=== PATIENT | male | born 1950 | race American Indian/Alaskan Native ===

== ENCOUNTER 2019-09-21 15:44 | Emergency (ER) | payer MEDICARE, OTHER ==
--- NOTE | 2019-09-21 16:14 | Cat Scan Report ---
CT BRAIN: 09/21/2019 INDICATION / CLINICAL INFORMATION: Right-sided weakness. COMPARISON: CT brain 06/23/2010 FINDINGS: BRAIN/INTRACRANIAL STRUCTURES: Unenhanced CT images of the brain demonstrate no evidence of acute int racranial abnormality. Again seen is evidence of the prior left parietal craniotomy, with prominent underlying left parietal cortical and subcortical encephalomalacia. There may be a small 1.2 cm area of abnormal soft tissue along the margin of the craniotomy site, as seen on axial images 26-27 and coronal image 60. Have ally dence of small meningioma, although because of localized artifact related to the craniotomy site, thi s cannot be confirmed. Depending on details of the clinical circumstances, as well as further informa tion regarding the nature of the underlying lesion and surgery, further evaluation with unenhanced an d enhanced MRI may be useful. EXTRACRANIAL STRUCTURES: Unremarkable. IMPRESSION: 1. No evidence of acute abnormality. 2. Postoperative changes as described above. These findings were discussed with Dr. Butler in the emergency department at [address] scans at this location are performed using dose reduction to ALARA by means of automated expos ure control. Signer Name: Aleksander Theodore MD Signed: 09/21/2019 4:10 PM Workstation Name: [id number]
[2019-09-21 16:15] LABS: Basophils % (Auto) 0.5 % (0.0-1.8); Eosinophils # (Auto) 0.1 K/mm3 (0.0-0.4); Eosinophils % (Auto) 1.4 % (0.0-4.3); Hematocrit 43.8 % (35.5-45.6); Hemoglobin 14.7 gm/dl (11.8-15.2); Lymphocytes # (Auto) 1.7 K/mm3 (1.2-5.4); Lymphocytes % (Auto) 35.6 % (13.4-35.0); Mean Corpuscular HGB Conc 34 % (32-34); Mean Corpuscular Volume 90 fl (84-94); Monocytes # (Auto) 0.4 K/mm3 (0.0-0.8); Monocytes % (Auto) 7.7 % (0.0-7.3); Platelet Count 219 K/mm3 (140-440)
--- NOTE | 2019-09-21 16:27 | XRay Report ---
CHEST 1 VIEW INDICATION / CLINICAL INFORMATION: stroke. COMPARISON: None available. FINDINGS: SUPPORT DEVICES: None. HEART / MEDIASTINUM: No significant abnormality. LUNGS / PLEURA: No significant pulmonary or pleural abnormality. No pneumothorax. ADDITIONAL FINDINGS: No significant additional findings. IMPRESSION: No acute pulmonary or pleural abnormality Signer Name: Cameron Genao MD FACR Signed: 09/21/2019 4:23 PM Workstation Name: [id number]
[2019-09-21 16:28] LABS: INR 1.07 (0.87-1.13); Partial Thromboplastin Time 24.7 Sec. (24.2-36.6); Thrombin Time 16.5 Sec. (15.1-19.6)
[2019-09-21 16:31] LABS: Creatine Kinase MB 1.7 ng/mL (0.0-4.0)
[2019-09-21 16:33] LABS: Alanine Aminotransferase 14 units/L (7-56); Albumin 4.2 g/dL (3.9-5); BUN/Creatinine Ratio 19; Blood Urea Nitrogen 19 mg/dL (9-20); Calcium 9.4 mg/dL (8.4-10.2); Hemolysis Index 5
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
[2019-09-21 17:45] VITALS: BP 186/124
[2019-09-21] MEDS ORDERED: ASPIRIN 325 MG TAB PO ONE (17:45)
--- NOTE | 2019-09-21 17:55 | Cat Scan Report ---
NECK ANGIOGRAM 09/21/2019 HISTORY: Right-sided weakness FINDINGS: Contrast-enhanced CT angiographic images of the neck were obtained. In addition to the axia l images, sagittal and coronal reformatted images were obtained. In addition, 3 plane MIP reconstruct ions were produced. NASCET like criteria were used in this evaluation. At the right bifurcation, there is contrast opacification of the proximal aspect of the right interna l carotid artery, which appears to be occluded approximately 2.7 cm above the bifurcation. There is n o opacification of the upper cervical internal carotid artery on the right above this level. Descript ion of the intracranial distal right ICA is made on the head CT angiogram report. The left bifurcation is unremarkable. Vertebral artery contours are unremarkable. Visualized portions of the aortic arch are unremarkable. IMPRESSION: 1. Right ICA occlusion. All CT scans at this location are performed using dose reduction to ALARA by means of automated expos ure control. Signer Name: Aleksander Theodore MD Signed: 09/21/2019 5:51 PM Workstation Name: [id number]
--- NOTE | 2019-09-21 18:03 | Cat Scan Report ---
HEAD CT ANGIOGRAM 09/21/2019 HISTORY: Right-sided weakness FINDINGS: Contrast-enhanced CT angiographic images of the intracranial circulation were obtained. In addition to the axial images, sagittal and coronal reformatted images were obtained. In addition, 3 p brady MIP reconstructions were produced. There is some opacification present in the distal right internal carotid artery beginning in the lowe r no skull base, along the horizontal portion of the internal carotid artery. It is noted to be proxi desiree occluded on the neck CT angiogram. There is good visualization of the distal most aspect of the internal carotid arteries as well as their proximal anterior and middle cerebral artery branches. Intracranial arterial opacification is unremarkable, with no evidence of vessel occlusion. There is segment of the right middle cerebral artery distribution which is relatively avascular, 3.5 cm in the right parietal lobe. This would be suspicious for an area of acute vascular occlusion... Vertebral basilar system is unremarkable. Incidental note is made of enhancement of a 1.7 cm extra-axial soft tissue nodule along the upper mar gin of the left parietal craniotomy site. This was noted as a suspected mass on an earlier CT scan, a nd is likely to be a small meningioma. Correlation with patient's surgical history will be helpful fo r further evaluation of this finding IMPRESSION: No evidence of significant intracranial vascular abnormality. Possible avascular portion of right parietal lobe. See above discussion regarding small enhancing extra-axial nodule in left parietal region. All CT scans at this location are performed using dose reduction to ALARA by means of automated expos ure control. Signer Name: Aleksander Theodore MD Signed: 09/21/2019 5:58 PM Workstation Name: [id number]
[2019-09-21] MEDS ORDERED: ASPIRIN 300 MG RECT SUPP PR ONE (18:28)
== END 2019-09-21 18:50 | disposition other institution (70) ==
LOC: ED 15:44
DX: I63.9 Cerebral infarction, unspecified (principal); R47.81 Slurred speech; I10 Essential (primary) hypertension; Z98.890 Other specified postprocedural states; Z79.2 Long term (current) use of antibiotics; Z79.899 Other long term (current) drug therapy
CPT/HCPCS: 36415; 70450; 70496; 70498; 71045; 80053; 82550; 82553; 82962; 84484; 85025; 85610; 85670; 85730; 93005; 96374; 99291; Q9967; 80320; G0480

== ENCOUNTER 2021-03-28 22:18 | Observation (INO) | payer MEDICARE ==
--- NOTE | 2021-03-28 23:42 | XRay Report ---
CHEST 1 VIEW 03/28/2021 10:29 PM INDICATION / CLINICAL INFORMATION: Chest Pain. COMPARISON: 09/21/19. FINDINGS: SUPPORT DEVICES: There is a probable environmental monitoring technician overlying the left mid chest. HEART / MEDIASTINUM: The heart size and pulmonary vasculature are normal. There is mild aortic tortuo sity without aneurysm. LUNGS / PLEURA: There is mild right basilar subsegmental atelectasis. The lungs are otherwise clear. No pleural abnormality is seen. No pneumothorax. ADDITIONAL FINDINGS: No significant additional findings. IMPRESSION: Mild right basilar subsegmental atelectasis. Signer Name: Ty Tate MD Signed: 03/28/2021 11:38 PM Workstation Name: [id number]
[2021-03-28 23:50] LABS: Basophils % (Auto) 0.1 % (0.0-1.8); Eosinophils # (Auto) 0.1 K/mm3 (0.0-0.4); Eosinophils % (Auto) 1.9 % (0.0-4.3); Hematocrit 40.3 % (35.5-45.6); Hemoglobin 12.7 gm/dl (11.8-15.2); Lymphocytes # (Auto) 0.3 K/mm3 (1.2-5.4); Lymphocytes % (Auto) 6.9 % (13.4-35.0); Mean Corpuscular HGB Conc 32 % (32-34); Mean Corpuscular Volume 89 fl (84-94); Monocytes # (Auto) 0.1 K/mm3 (0.0-0.8); Monocytes % (Auto) 3.4 % (0.0-7.3); Platelet Count 225 K/mm3 (140-440); Red Blood Count 4.53 M/mm3 (3.65-5.03); Red Cell Distribution Width 14.6 % (13.2-15.2)
[2021-03-29] MEDS ORDERED: NITROGLYCERIN 0.4 MG TAB SUBL SL PRN ×2 (00:03→01:48)
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
[2021-03-29 00:16] LABS: Alanine Aminotransferase 11 units/L (7-56); Albumin 4.1 g/dL (3.9-5); BUN/Creatinine Ratio 21; Blood Urea Nitrogen 21 mg/dL (9-20); Calcium 9.3 mg/dL (8.4-10.2); Hemolysis Index 3
[2021-03-29] MEDS ORDERED: MORPHINE 2 MG/1 ML INJ IV PRN (01:48)
[2021-03-29] MEDS ORDERED: ACETAMINOPHEN 325 MG TAB PO PRN (01:48)
[2021-03-29] MEDS ORDERED: traMADol 50 MG TAB PO PRN (01:48)
--- NOTE | 2021-03-29 01:56 | History and Physical Report ---
History of Present Illness Date of examination: 03/29/21 Date of admission: 03/29/21 00:02 Chief complaint: Chest pain History of present illness: 70-year-old male with history of CVA, brain tumor status post craniotomy, coronary disease status post cardiac stent who presents with dental pain chest pain which is 8/10 left chest radiating to the left upper quadrant and epigastric region. Sudden onset of a thumping sensation with shortness of breath. One episode of vomiting. Cardiac stent placed at [facility] 1 year ago. He received aspirin per EMS. In the emergency room patient initial troponin is 0.010. Chest x-ray shows mild right basilar subsegmental atelectasis.'s were going to admit the patient to put the patient on chest pain pathway and consult ironworker Med rec is done Past History Past Medical History: CAD, other (Status post cardiac a stent. Brain tumor status post craniotomy) Medications and Allergies Allergies Allergy/AdvReac Type Severity Reaction Status Date / Time No Known Allergies Allergy Verified 03/28/21 22:31 Home Medications Medication Instructions Recorded Confirmed Last Taken Type Phenazopyridine [Pyridium] 200 mg PO TID #6 tab 11/25/15 Unknown Rx levoFLOXacin [Levaquin] 750 mg PO QDAY #10 tablet 11/25/15 Unknown Rx lisinopriL [Zestril TAB] 10 mg PO QDAY 11/25/15 11/25/15 Unknown History Active Meds: Active Medications Nitroglycerin (Nitroglycerin 0.4 Mg Tab Subl) 0.4 mg SL .Q5MIN PRN PRN Reason: Chest Pain Review of Systems All systems: negative Cardiovascular: chest pain, shortness of breath Respiratory: shortness of breath Exam - Constitutional Vitals: Temp Pulse Resp BP Pulse Ox 98.2 F 67 16 128/77 99 03/28/21 22:31 03/29/21 01:28 03/29/21 01:01 03/29/21 01:01 03/29/21 01:01 General appearance: Present: no acute distress, well-nourished - EENT Eyes: Present: PERRL ENT: hearing intact, clear oral mucosa - Neck Neck: Present: supple, normal ROM - Respiratory Respiratory effort: normal Respiratory: bilateral: diminished - Cardiovascular Heart Sounds: Present: S1 & S2. Absent: rub, click - Extremities Extremities: pulses symmetrical, No edema Peripheral Pulses: within normal limits - Abdominal General gastrointestinal: Present: soft, non-tender, non-distended, normal bowel sounds Male genitourinary: Present: normal - Integumentary Integumentary: Present: clear, warm, dry - Musculoskeletal Musculoskeletal: gait normal, strength equal bilaterally - Psychiatric Psychiatric: appropriate mood/affect, intact judgment & insight - Neurologic Neurologic: CNII-XII intact, moves all extremities HEART Score - HEART Score EKG: Normal Age: > 65 Risk factors: 1-2 risk factors Troponin: Troponin T < 0.010 ng/mL (0.00-0.029) 03/28/21 23: Troponin: < normal limit - Critical Actions Critical Actions: 4-6 pts:12-16.6% risk of adverse cardiac event. Should be admitted Results - Labs CBC & Chem 7: 03/28/21 23:30 03/28/21 23:30 Labs: Laboratory Last Values WBC 4.2 K/mm3 (4.5-11.0) L 03/28/21 23: RBC 4.53 M/mm3 (3.65-5.03) 03/28/21 23:30 Hgb 12.7 gm/dl (11.8-15.2) 03/28/21 23: Hct 40.3 % (35.5-45.6) 03/28/21 23:30 MCV 89 fl (84-94) 03/28/21 23:30 MCH 28 pg (28-32) 03/28/21 23: MCHC 32 % (32-34) 03/28/21 23: RDW 14.6 % (13.2-15.2) 03/28/21 23:30 Plt Count 225 K/mm3 (140-440) 03/28/21 23: Lymph % (Auto) 6.9 % (13.4-35.0) L 03/28/21 23: [place] % (Auto) 3.4 % (0.0-7.3) 03/28/21 23: Eos % (Auto) 1.9 % (0.0-4.3) 03/28/21 23: Baso % (Auto) 0.1 % (0.0-1.8) 03/28/21 23:30 Lymph # (Auto) 0.3 K/mm3 (1.2-5.4) L 03/28/21 23:30 [place] # (Auto) 0.1 K/mm3 (0.0-0.8) 03/28/21 23:30 Eos # (Auto) 0.1 K/mm3 (0.0-0.4) 03/28/21 23:30 Baso # (Auto) 0.0 K/mm3 (0.0-0.1) 03/28/21 23:30 Seg Neutrophils % 87.7 % (40.0-70.0) H 03/28/21 23:30 Seg Neutrophils # 3.7 K/mm3 (1.8-7.7) 03/28/21 23:30 Sodium 145 mmol/L (137-145) 03/28/21 23: Potassium 4.1 mmol/L (3.6-5.0) 03/28/21 23: Chloride 109.5 mmol/L (98-107) H 03/28/21 23:30 Carbon Dioxide 23 mmol/L (22-30) 03/28/21 23:30 Anion Gap 17 mmol/L 03/28/21 23:30 BUN 21 mg/dL (9-20) H 03/28/21 23:30 Creatinine 1.0 mg/dL (0.8-1.3) 03/28/21 23:30 Estimated GFR > 60 ml/min 03/28/21 23: BUN/Creatinine Ratio 21 % 03/28/21 23: Glucose 109 mg/dL (75-100) H 03/28/21 23: Calcium 9.3 mg/dL (8.4-10.2) 03/28/21 23: Total Bilirubin 0.50 mg/dL (0.1-1.2) 03/28/21 23: AST 15 units/L (5-40) 03/28/21 23: ALT 11 units/L (7-56) 03/28/21 23: Alkaline Phosphatase 76 units/L (35-129) 03/28/21 23: Troponin T < 0.010 ng/mL (0.00-0.029) 03/28/21 23: Total Protein 6.9 g/dL (6.3-8.2) 03/28/21 23:30 Albumin 4.1 g/dL (3.9-5) 03/28/21 23:30 Albumin/Globulin Ratio 1.5 % 03/28/21 23:30 Lipase 22 units/L (13-60) 03/28/21 23:30 - Imaging and Cardiology Chest x-ray: report reviewed Yin/IV: Voiding Method Urinal Assessment and Plan VTE prophylaxis?: Chemical Plan of care discussed with patient/family: Yes - Patient Problems (1) Acute coronary syndrome Current Visit: Yes Status: Acute Plan to address problem: Admit the patient to the medical telemetry. Aspirin 325 mg p.o. daily. Lipitor 80 mg p.o. daily. Nitroglycerin as needed. Oxygen via nasal cannula 3 L/min. We do the serial cardiac enzyme. Echocardiogram. Cardiology consult (2) CAD (coronary artery disease) Current Visit: Yes Status: Acute Plan to address problem: Aspirin 325 mg p.o. daily. Lipitor 80 mg p.o. daily. Nitroglycerin as needed. Oxygen via nasal cannula 3 L/min. We do the serial cardiac enzyme. E chocardiogram. Cardiology consult. We will continue the home medication (3) CVA (cerebral vascular accident) Current Visit: Yes Status: Acute Plan to address problem: Stable. Aspirin 325 mg p.o. daily. Lipitor 40 mg p.o. daily. Outpatient follow-up with neurology (4) Brain tumor Current Visit: Yes Status: Acute Plan to address problem: Patient is status post craniotomy. Outpatient follow-up with neurology (5) DVT prophylaxis Current Visit: Yes Status: Acute Plan to address problem: Heparin 5000 units subcu every 8 hours for DVT prophylaxis. Pepcid 20 mg p.o. twice daily for GI prophylaxis. Patient is a full code
[2021-03-29] MEDS ORDERED: SODIUM CHLORIDE 0.9% 1000 ML 1,000 ML IV SCH (02:00)
[2021-03-29] MEDS: HEPARIN 5,000 UNIT/1 ML VIAL SUB-Q SCH ×3 (05:25→21:33)
[2021-03-29 06:21] LABS: Basophils % (Auto) 0.2 % (0.0-1.8); Eosinophils # (Auto) 0.1 K/mm3 (0.0-0.4); Eosinophils % (Auto) 1.9 % (0.0-4.3); Hematocrit 40.5 % (35.5-45.6); Lymphocytes # (Auto) 0.4 K/mm3 (1.2-5.4); Lymphocytes % (Auto) 12.8 % (13.4-35.0); Mean Corpuscular HGB Conc 32 % (32-34); Mean Corpuscular Volume 89 fl (84-94); Monocytes # (Auto) 0.2 K/mm3 (0.0-0.8); Monocytes % (Auto) 5.1 % (0.0-7.3); Platelet Count 220 K/mm3 (140-440); Red Blood Count 4.54 M/mm3 (3.65-5.03); Red Cell Distribution Width 14.7 % (13.2-15.2)
[2021-03-29 06:38] LABS: BUN/Creatinine Ratio 20; Blood Urea Nitrogen 20 mg/dL (9-20); Calcium 9.2 mg/dL (8.4-10.2); Hemolysis Index 10
[2021-03-29] MEDS ORDERED: PHENAZOPYRIDINE 200 MG TAB PO SCH (08:00)
--- NOTE | 2021-03-29 09:28 | Progress Note ---
Assessment and Plan Assessment and plan: History of present illness: 70-year-old male with history of CVA, brain tumor status post craniotomy, coronary disease status post cardiac stent who presents with dental pain chest pain which is 8/10 left chest radiating to the left upper quadrant and epigastric region. Sudden onset of a thumping sensation with shortness of breath. One episode of vomiting. Cardiac stent placed at [facility] 1 year ago. He received aspirin per EMS. In the emergency room patient initial troponin is 0.010. Chest x-ray shows mild right basilar subsegmental atelectasis.'s were going to admit the patient to put the patient on chest pain pathway and consult computer operations manager Med rec is done Hospital course to date 03/29/2021: ECHO pending. needs optimization of cardiac meds, added metoprolol 25 mg po bid. Awaiting cardiology recommendations. Assessment and plan (1) Acute coronary syndrome Current Visit: Yes Status: Acute Plan to address problem: Admit the patient to the medical telemetry. Aspirin 325 mg p.o. daily. Lipitor 80 mg p.o. daily. Nitroglycerin as needed. Oxygen via nasal cannula 3 L/min. We do the serial cardiac enzyme. Echocardiogram. Cardiology consult (2) CAD (coronary artery disease) Current Visit: Yes Status: Acute Plan to address problem: Hx of cardiac stent 1 mo ago at [place]. Aspirin 325 mg p.o. daily. Lipitor 80 mg p.o. daily. Nitroglycerin as needed. Oxygen via nasal cannula 3 L/min. We do the serial cardiac enzyme. Echocardiogram. Cardiology consult. We will continue the home medication (3) CVA (cerebral vascular accident) Current Visit: Yes Status: Acute Plan to address problem: Stable. Aspirin 325 mg p.o. daily. Lipitor 40 mg p.o. daily. Outpatient follow-up with neurology (4) Brain tumor Current Visit: Yes Status: Acute Plan to address problem: Patient is status post craniotomy. Outpatient follow-up with neurology (5) DVT prophylaxis Current Visit: Yes Status: Acute Plan to address problem: Heparin 5000 units subcu every 8 hours for DVT prophylaxis. Pepcid 20 mg p.o. twice daily for GI prophylaxis. Patient is a full code History Interval history: no complaints on encounter. patient has some left upper extremity weakness, arm appears contracted. Pt states this has been chronic since prior stroke. No active chest pain complaints on encounter. Hospitalist Physical - Physical exam Narrative exam: Physical Exam: VITAL SIGNS: Reviewed. GENERAL: The patient appears normally developed, Vital signs as documented. HEAD: No signs of head trauma. EYES: Pupils are equal. Extraocular motions intact. EARS: Hearing grossly intact. MOUTH: Oropharynx is normal. NECK: No adenopathy, no JVD. CHEST: Chest with clear breath sounds bilaterally. No wheezes, rales, or rhonchi. CARDIAC: Regular rate and rhythm. S1 and S2, without murmurs, gallops, or rubs. VASCULAR: No Edema. Peripheral pulses normal and equal in all extremities. ABDOMEN: Soft, non tender and non distended. No rebound or guarding, and no masses palpated. Bowel Sounds normal. MUSCULOSKELETAL: Good range of motion of all major joints except left upper extremity, weak, contracted. Extremities without clubbing, cyanosis or edema. NEUROLOGIC EXAM: Alert and oriented x 4. no focal sensory or strength deficits. PSYCHIATRIC: Mood normal. SKIN: detail exam as documented in skin assessment - Constitutional Vitals: Temp Pulse Resp BP Pulse Ox 97.9 F 76 16 142/80 99 03/29/21 08:21 03/29/21 08:21 03/29/21 08:21 03/29/21 08:21 03/29/21 08:21 General appearance: Present: no acute distress, well-nourished HEART Score - HEART Score EKG: Normal Age: > 65 Risk factors: 1-2 risk factors Troponin: Troponin T < 0.010 ng/mL (0.00-0.029) 03/28/21 23:30 Troponin: < normal limit - Critical Actions Critical Actions: 4-6 pts:12-16.6% risk of adverse cardiac event. Should be admitted Results - Labs CBC & Chem 7: 03/29/21 05:21 03/29/21 05:21 Labs: Laboratory Last Values WBC 3.3 K/mm3 (4.5-11.0) L 03/29/21 05:21 RBC 4.54 M/mm3 (3.65-5.03) 03/29/21 05:21 Hgb 13.0 gm/dl (11.8-15.2) 03/29/21 05:21 Hct 40.5 % (35.5-45.6) 03/29/21 05:21 MCV 89 fl (84-94) 03/29/21 05:21 MCH 29 pg (28-32) 03/29/21 05:21 MCHC 32 % (32-34) 03/29/21 05:21 RDW 14.7 % (13.2-15.2) 03/29/21 05:21 Plt Count 220 K/mm3 (140-440) 03/29/21 05:21 Lymph % (Auto) 12.8 % (13.4-35.0) L 03/29/21 05:21 [place] % (Auto) 5.1 % (0.0-7.3) 03/29/21 05:21 Eos % (Auto) 1.9 % (0.0-4.3) 03/29/21 05:21 Baso % (Auto) 0.2 % (0.0-1.8) 03/29/21 05:21 Lymph # (Auto) 0.4 K/mm3 (1.2-5.4) L 03/29/21 05:21 [place] # (Auto) 0.2 K/mm3 (0.0-0.8) 03/29/21 05:21 Eos # (Auto) 0.1 K/mm3 (0.0-0.4) 03/29/21 05:21 Baso # (Auto) 0.0 K/mm3 (0.0-0.1) 03/29/21 05:21 Seg Neutrophils % 80.0 % (40.0-70.0) H 03/29/21 05:21 Seg Neutrophils # 2.6 K/mm3 (1.8-7.7) 03/29/21 05:21 Sodium 145 mmol/L (137-145) 03/29/21 05:21 Potassium 4.1 mmol/L (3.6-5.0) 03/29/21 05:21 Chloride 108.8 mmol/L (98-107) H 03/29/21 05:21 Carbon Dioxide 25 mmol/L (22-30) 03/29/21 05:21 Anion Gap 15 mmol/L 03/29/21 05:21 BUN 20 mg/dL (9-20) 03/29/21 05:21 Creatinine 1.0 mg/dL (0.8-1.3) 03/29/21 05:21 Estimated GFR > 60 ml/min 03/29/21 05:21 BUN/Creatinine Ratio 20 % 03/29/21 05:21 Glucose 98 mg/dL (75-100) 03/29/21 05:21 Calcium 9.2 mg/dL (8.4-10.2) 03/29/21 05:21 Total Bilirubin 0.50 mg/dL (0.1-1.2) 03/28/21 23:30 AST 15 units/L (5-40) 03/28/21 23:30 ALT 11 units/L (7-56) 03/28/21 23:30 Alkaline Phosphatase 76 units/L (35-129) 03/28/21 23:30 Troponin T < 0.010 ng/mL (0.00-0.029) 03/28/21 23:30 Total Protein 6.9 g/dL (6.3-8.2) 03/28/21 23:30 Albumin 4.1 g/dL (3.9-5) 03/28/21 23:30 Albumin/Globulin Ratio 1.5 % 03/28/21 23:30 Lipase 22 units/L (13-60) 03/28/21 23:30 Yin/IV: Voiding Method Urinal Active Medications - Current Medications Current Medications: Generic Name Dose Route Start Last Admin Trade Name Freq PRN Reason Stop Dose Admin Acetaminophen 650 mg 03/29/21 01:48 Acetaminophen 325 Mg Tab PO Q6H PRN Pain, Mild (1-3) Aspirin 325 mg 03/30/21 10:00 Aspirin Ec 325 Mg Tab PO QDAY [facility] Atorvastatin Calcium 80 mg 03/29/21 22:00 Atorvastatin 40 Mg Tab PO QHS [facility] Heparin Sodium (Porcine) 5,000 unit 03/29/21 06:00 03/29/21 05:25 Heparin 5,000 Unit/1 Ml Vial SUB-Q 5,000 unit Q8HR [facility] Administration Sodium Chloride 1,000 mls @ 100 mls/hr 03/29/21 02:00 Nacl 0.9% 1000 Ml IV DIRECT [facility] Lisinopril 10 mg 03/29/21 10:00 Lisinopril 10 Mg Tab PO QDAY [facility] Morphine Sulfate 2 mg 03/29/21 01:48 Morphine 2 Mg/1 Ml Inj IV Q5MIN PRN Chest Pain unrelieved by NTG Nitroglycerin 0.4 mg 03/29/21 00:03 Nitroglycerin 0.4 Mg Tab Subl SL .Q5MIN PRN Chest Pain Nitroglycerin 0.4 mg 03/29/21 01:48 Nitroglycerin 0.4 Mg Tab Subl SL Q5M PRN Chest Pain Pantoprazole Sodium 40 mg 03/29/21 10:00 Pantoprazole 40 Mg Tab PO QDAY [facility] Phenazopyridine HCl 200 mg 03/29/21 08:00 Phenazopyridine 200 Mg Tab PO TID [facility] Sodium Chloride 10 ml 03/29/21 01:48 Sodium Chloride 0.9% 10 Ml Flush Syringe IV PRN PRN LINE FLUSH Tramadol HCl 50 mg 03/29/21 01:48 Tramadol 50 Mg Tab PO Q6H PRN Pain, Moderate (4-6)
[2021-03-29] MEDS ORDERED: levoFLOXacin 750 MG TAB PO SCH (10:00)
[2021-03-29] MEDS: LISINOPRIL 10 MG TAB PO SCH (10:11)
[2021-03-29] MEDS: PANTOPRAZOLE 40 MG TAB PO SCH (10:13)
--- NOTE | 2021-03-29 11:14 | Electrocardiograph Report ---
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
--- NOTE | 2021-03-29 11:22 | Electrocardiograph Report ---
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
--- NOTE | 2021-03-29 13:46 | Consultation ---
History of Present Illness Consult date: 03/29/21 Consult reason: chest pain History of present illness: 70-year old M with multiple medical problems. He has a history of hypertension, sigmoid colon hemorrhage in 2018, BPH, and meningioma. 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 His Echo showed normal LV size and function. Given multiple embolic infarcts a loop recorder was placed. He is followed by operations officer at [facility]. No evidence of atrial fibrillation reported thus far. He remains on Brilinta and aspirin and is followed by Neurology. He presents to this hospital with chest pain. There is no known history of coronary artery disease. Troponin measurements are normal and his ECG is normal sinus rhythm with occasional PVCs. Cardiology consultation has been requested for further evaluation. Past History Past Medical History: hypertension, hyperlipidemia, stroke, other (Status post cardiac a stent. Brain tumor status post craniotomy) Medications and Allergies Allergies Allergy/AdvReac Type Severity Reaction Status Date / Time No Known Allergies Allergy Verified 03/28/21 22:31 Home Medications Medication Instructions Recorded Confirmed Last Taken Type Alfuzosin HCl [Alfuzosin HCl ER] 10 mg PO QDAY 03/29/21 03/29/21 03/28/21 History Ascorbic Acid [Vitamin C] 500 mg PO QDAY 03/29/21 03/29/21 03/28/21 History Atorvastatin [Lipitor Tab] 80 mg PO QHS 03/29/21 03/29/21 03/28/21 History FLUoxetine [PROzac] 20 mg PO QDAY 03/29/21 03/29/21 03/28/21 History Naproxen [Naprosyn] 500 mg PO BIDWM 03/29/21 03/29/21 03/28/21 History Pantoprazole [Protonix] 40 mg PO QDAY 03/29/21 03/29/21 03/28/21 History Tamsulosin [Flomax] 0.4 mg PO QDAY 03/29/21 03/29/21 03/28/21 History Ticagrelor [Brilinta] 90 mg PO BID 03/29/21 03/29/21 03/28/21 History amLODIPine [Norvasc] 10 mg PO DAILY 03/29/21 03/29/2121 History lisinopriL [Lisinopril] 20 mg PO QDAY 03/29/21 03/29/21 03/28/21 History Active Meds: Active Medications Acetaminophen (Acetaminophen 325 Mg Tab) 650 mg PO Q6H PRN PRN Reason: Pain, Mild (1-3) Aspirin (Aspirin Ec 325 Mg Tab) 325 mg PO QDAY [facility] Atorvastatin Calcium (Atorvastatin 40 Mg Tab) 80 mg PO QHS [facility] Heparin Sodium (Porcine) (Heparin 5,000 Unit/1 Ml Vial) 5,000 unit SUB-Q Q8HR [facility] Last Admin: 03/29/21 05:25 Dose: 5,000 unit Documented by: Sodium Chloride (Nacl 0.9% 1000 Ml) 1,000 mls @ 100 mls/hr IV DIRECT [facility] Lisinopril (Lisinopril 10 Mg Tab) 10 mg PO QDAY [facility] Last Admin: 03/29/21 10:11 Dose: 10 mg Documented by: Metoprolol Tartrate (Metoprolol Tartrate 25 Mg Tab) 25 mg PO BID [facility] Morphine Sulfate (Morphine 2 Mg/1 Ml Inj) 2 mg IV Q5MIN PRN PRN Reason: Chest Pain unrelieved by NTG Nitroglycerin (Nitroglycerin 0.4 Mg Tab Subl) 0.4 mg SL .Q5MIN PRN PRN Reason: Chest Pain Nitroglycerin (Nitroglycerin 0.4 Mg Tab Subl) 0.4 mg SL Q5M PRN PRN Reason: Chest Pain Pantoprazole Sodium (Pantoprazole 40 Mg Tab) 40 mg PO QDAY [facility] Last Admin: 03/29/21 10:13 Dose: 40 mg Documented by: Sodium Chloride (Sodium Chloride 0.9% 10 Ml Flush Syringe) 10 ml IV PRN PRN PRN Reason: LINE FLUSH Tramadol HCl (Tramadol 50 Mg Tab) 50 mg PO Q6H PRN PRN Reason: Pain, Moderate (4-6) Physical Examination Vital Signs Temp Pulse Resp BP Pulse Ox 98.2 F 115 H 16 106/52 99 03/28/21 22:31 03/28/21 22:31 03/28/21 22:31 03/28/21 22:31 03/28/21 22:31 General appearance: no acute distress HEENT: Positive: PERRL Neck: Positive: trachea midline Cardiac: Positive: Reg Rate and Rhythm Lungs: Positive: Decreased Breath Sounds Extremities: Absent: edema Results 03/29/21 05:21 03/29/21 05:21 Cardiac Enzymes 03/28/21 Range/Units 23:30 AST 15 (5-40) units/L CBC 03/28/21 03/29/21 Range/Units 23:30 05:21 WBC 4.2 L 3.3 L (4.5-11.0) K/mm3 RBC 4.53 4.54 (3.65-5.03) M/mm3 Hgb 12.7 13.0 (11.8-15.2) gm/dl Hct 40.3 40.5 (35.5-45.6) % Plt Count 225 220 (140-440) K/mm3 Lymph # (Auto) 0.3 L 0.4 L (1.2-5.4) K/mm3 [place] # (Auto) 0.1 0.2 (0.0-0.8) K/mm3 Eos # (Auto) 0.1 0.1 (0.0-0.4) K/mm3 Baso # (Auto) 0.0 0.0 (0.0-0.1) K/mm3 Comprehensive Metabolic Panel 03/28/21 03/29/21 Range/Units 23:30 05:21 Sodium 145 145 (137-145) mmol/L Potassium 4.1 4.1 (3.6-5.0) mmol/L Chloride 109.5 H 108.8 H (98-107) mmol/L Carbon Dioxide 23 25 (22-30) mmol/L BUN 21 H 20 (9-20) mg/dL Creatinine 1.0 1.0 (0.8-1.3) mg/dL Glucose 109 H 98 (75-100) mg/dL Calcium 9.3 9.2 (8.4-10.2) mg/dL AST 15 (5-40) units/L ALT 11 (7-56) units/L Alkaline Phosphatase 76 (35-129) units/L Total Protein 6.9 (6.3-8.2) g/dL Albumin 4.1 (3.9-5) g/dL Assessment and Plan Chest pain Hypertension Hx of sigmoid colon hemorrhage in 2018 Prior CVA involving multiple embolic infarcts s/p thrombectomy for acute right MCA occlusion complicated 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 on Brilinta and aspirin as an outpatient Presence of loop recorder 2020 Echo showed normal LV size and function. No evidence of PFO. Obtain recent cardiac workup from [facility].
[2021-03-29] MEDS: METOPROLOL TARTRATE 25 MG TAB PO SCH ×2 (18:21→21:34)
[2021-03-30] MEDS: HEPARIN 5,000 UNIT/1 ML VIAL SUB-Q SCH (05:52)
--- NOTE | 2021-03-30 09:00 | Discharge Summary ---
Providers - Providers Date of Admission: 03/29/21 00:02 Date of discharge: 03/30/21 Attending physician: YULIANA FALK MD 03/29/21 Consult to Cardiac Rehabilitation [CONS] Routine Reason For Exam: Phase I 03/29/21 01:49 Consult to Cardiology [CONS] Routine Consulting Provider: ELVIA HALL Reason For Exam: Acute coronary syndrome Primary care physician: CRISTO CASEY Hospitalization Reason for admission: chest pain Condition: Stable Hospital course: History of present illness: 70-year-old male with history of CVA, brain tumor status post craniotomy, coronary disease status post cardiac stent who presents with dental pain chest pain which is 8/10 left chest radiating to the left upper quadrant and epigastric region. Sudden onset of a thumping sensation with shortness of breath. One episode of vomiting. Cardiac stent placed at [facility] 1 year ago. He received aspirin per EMS. In the emergency room patient initial troponin is 0.010. Chest x-ray shows mild right basilar subsegmental atelectasis.'s were going to admit the patient to put the patient on chest pain pathway and consult wicker molded candles Med rec is done Hospital course to date 03/29/2021: ECHO pending. needs optimization of cardiac meds, added metoprolol 25 mg po bid. Awaiting cardiology recommendations. 03/30/2021: Echo completed, normal LVEF function. Per cardiology, patient had MPI in january of this year which only showed mild ischemia. Recommended med op timization with BB and imdur. If chest pain returns, they recommended follow up and possible cath in future. He was advised to continue home medications as prescribed and follow up outpatient with his primary wicker molded candles and primary care physician. Rx for metoprolol 25 mg po bid and imdur 30 mg po daily transmitted to patient pharmacy. Assessment and plan (1) Acute coronary syndrome Current Visit: Yes Status: Acute Plan to address problem: Admit the patient to the medical telemetry. Aspirin 325 mg p.o. daily. Lipitor 80 mg p.o. daily. Nitroglycerin as needed. Oxygen via nasal cannula 3 L/min. We do the serial cardiac enzyme. Echocardiogram. Cardiology consult (2) CAD (coronary artery disease) Current Visit: Yes Status: Acute Plan to address problem: Hx of cardiac stent 1 mo ago at [place]. Aspirin 325 mg p.o. daily. Lipitor 80 mg p.o. daily. Nitroglycerin as needed. Oxygen via nasal cannula 3 L/min. We do the serial cardiac enzyme. Echocardiogram. Cardiology consult. We will continue the home medication (3) CVA (cerebral vascular accident) Current Visit: Yes Status: Acute Plan to address problem: Stable. Aspirin 325 mg p.o. daily. Lipitor 40 mg p.o. daily. Outpatient follow-up with neurology (4) Brain tumor Current Visit: Yes Status: Acute Plan to address problem: Patient is status post craniotomy. Outpatient follow-up with neurology (5) DVT prophylaxis Current Visit: Yes Status: Acute Plan to address problem: Heparin 5000 units subcu every 8 hours for DVT prophylaxis. Pepcid 20 mg p.o. twice daily for GI prophylaxis. Patient is a full code Disposition: 01 HOME / SELF CARE / HOMELESS Final Discharge Diagnosis (Prints w/discharge instructions): acute coronary syndrome Time spent for discharge: 25 - Discharge Diagnoses (1) Acute coronary syndrome Status: Acute Core Measure Documentation - Palliative Care Palliative Care/ Comfort Measures: Not Applicable - Core Measures Any of the following diagnoses?: none Exam - Physical Exam Narrative exam: Physical Exam: VITAL SIGNS: Reviewed. GENERAL: The patient appears normally developed, Vital signs as documented. HEAD: No signs of head trauma. EYES: Pupils are equal. Extraocular motions intact. EARS: Hearing grossly intact. MOUTH: Oropharynx is normal. NECK: No adenopathy, no JVD. CHEST: Chest with clear breath sounds bilaterally. No wheezes, rales, or rh onchi. CARDIAC: Regular rate and rhythm. S1 and S2, without murmurs, gallops, or rubs. VASCULAR: No Edema. Peripheral pulses normal and equal in all extremities. ABDOMEN: Soft, non tender and non distended. No rebound or guarding, and no masses palpated. Bowel Sounds normal. MUSCULOSKELETAL: Good range of motion of all major joints except left upper extremity, weak, contracted. Extremities without clubbing, cyanosis or edema. NEUROLOGIC EXAM: Alert and oriented x 4. no focal sensory or strength deficits. PSYCHIATRIC: Mood normal. SKIN: detail exam as documented in skin assessment - Constitutional Vitals: Temp Pulse Resp BP Pulse Ox 98.5 F 61 18 136/75 96 03/30/21 07:44 03/30/21 07:44 03/30/21 07:44 03/30/21 07:44 03/30/21 07:44 Plan Follow up with: CRISTO CASEY MD [Primary Care Provider] - 3-5 Days Forms: Discharge Signature Page Prescriptions: ISOSORBIDE MONOnitrate [Imdur ER] 30 mg PO QDAY 30 Days #30 tablet Metoprolol [Lopressor TAB] 25 mg PO BID 30 Days #60 tablet
--- NOTE | 2021-03-30 09:53 | Electrocardiograph Report ---
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 Electronically Signed On 03-30-2021 9:53:02 EST by Wali Ch
[2021-03-30] MEDS ORDERED: TICAGRELOR 90 MG TAB PO SCH (10:00)
[2021-03-30] MEDS ORDERED: ASPIRIN EC 325 MG TAB PO SCH (10:00)
[2021-03-30] MEDS ORDERED: ASPIRIN EC 81 MG TAB PO SCH (10:00)
[2021-03-30] MEDS: PANTOPRAZOLE 40 MG TAB PO SCH (10:53)
[2021-03-30] MEDS: LISINOPRIL 10 MG TAB PO SCH (10:53)
[2021-03-30] MEDS: METOPROLOL TARTRATE 25 MG TAB PO SCH (10:53)
[2021-03-30 12:03] VITALS: BP 132/85
--- NOTE | 2021-03-30 12:15 | Progress Note ---
Assessment and Plan Noncardiac chest pain Recent MPI done at [facility] revealing a fixed defect with a small amount of jason-infarct ischemia, recommended for conservative management. Negative troponin this admission. History of cerebrovascular accidents 5 to 6-month ago status post thrombectomy complicated by internal carotid artery dissection, status post carotid artery stenting Recently normal left ventricular ejection fraction by echocardiogram Patient also has an implantable loop recorder. Recommendations: Continue current management. No further inpatient cardiac work-up is needed. Patient will follow up with his primary curriculum consultant as outpatient. Subjective Date of service: 03/30/21 Principal diagnosis: Chest pain Interval history: Patient denies any chest pain this morning. He also denies any shortness of breath. His chest pain originally was described as sharp lasting only seconds in duration, nonexertional and not relieved by rest. Chest pain features are noncardiac in origin. No events recorded on telemetry. Objective Vital Signs Temp Pulse Resp BP Pulse Ox 03/30/21 11:27 97.6 F 63 18 132/85 99 03/30/21 10:00 62 97 03/30/21 07:44 98.5 F 61 18 136/75 96 03/30/21 04:54 99.0 F 67 18 138/80 98 03/30/21 01:00 68 18 99 03/29/21 21:34 83 136/80 03/29/21 19:43 99.6 F 83 18 136/80 97 03/29/21 18:21 88 03/29/21 17:00 105 H 03/29/21 15:33 97.5 F L 91 H 18 154/91 99 03/29/21 13:28 99 - Physical Examination HEENT: Positive: PERRL Neck: Positive: trachea midline Cardiac: Positive: Reg Rate and Rhythm Lungs: Positive: Normal Exam Extremities: Absent: edema
== END 2021-03-30 14:08 | disposition home or self-care (01) ==
LOC: ED 22:18 → 4A 03-29 00:02
PROVIDERS: ADMIT Hospitalist; ATTEND Internal Medicine
DX: I24.9 Acute ischemic heart disease, unspecified (principal); I25.10 Atherosclerotic heart disease of native coronary artery without angina pectoris; I63.9 Cerebral infarction, unspecified; C71.9 Malignant neoplasm of brain, unspecified; R10.13 Epigastric pain; R07.89 Other chest pain; I10 Essential (primary) hypertension; E78.5 Hyperlipidemia, unspecified; R29.700 NIHSS score 0; Z79.899 Other long term (current) drug therapy; Z98.890 Other specified postprocedural states; Z86.73 Personal history of transient ischemic attack (TIA), and cerebral infarction without residual deficits; Z95.1 Presence of aortocoronary bypass graft; Z79.82 Long term (current) use of aspirin
CPT/HCPCS: 36415; 71045; 80048; 80053; 83690; 84484; 85025; 93005; 93306; 96360; 96361; 96372; 99285; G0378; J1644; J7030; Q0162